=== PATIENT | female | born 1970 | race Two or more races ===

== ENCOUNTER 2017-10-02 13:32 | Emergency (ER) | payer MEDICARE, MEDICAID ==
[~2017-10-02] VITALS: Ht 165.1 cm; Wt 74.8 kg
--- NOTE | 2017-10-02 13:35 | NUR ---
PT BIBRA TO ER BED 10. PER REPORT, PT'S NEIGHBOR CONCERNED ABOUT PT'S INCREASING PARANOIA. PT IS AAO, DENIES HI/SI. BILAT FOOT BLISTERS NOTED. PER FRIENDS PT'S BEEN OUT ALL NIGHT WALKING WITHOUT SHOES. GOWNED AND PLACED ON MONITOR. VSS. AWAITING MD STRINGER.
[2017-10-02 13:55] LABS: BASOPHILS # (AUTO) 0.2 /CMM (0.0-0.2); BASOPHILS % (AUTO) 2.1 % (0.0-2.0); EOSINOPHILS % (AUTO) 0.8 % (0.0-6.0); HEMATOCRIT 42 % (33-45); HEMOGLOBIN 13.8 g/dL (11.5-14.8); LYMPHOCYTES # (AUTO) 2.1 /CMM (0.8-4.8); LYMPHOCYTES % (AUTO) 23.6 % (20.0-44.0); MEAN CORPUSCULAR HEMOGLOBIN 30 PG (26.0-33.0); MEAN CORPUSCULAR HGB CONC 33 g/dl (31.0-36.0); MEAN CORPUSCULAR VOLUME 90 fL (82-100); MONOCYTES # (AUTO) 0.5 /CMM (0.1-1.30); MONOCYTES % (AUTO) 5.2 % (2.0-12.0); NEUTROPHILS % (AUTO) 68.3 % (43.0-81.0); PLATELET COUNT (AUTO) 220 /CMM (150-450); RED BLOOD CELL COUNT(AUTO) 4.63 MIL/uL (4.0-5.2); WHITE BLOOD COUNT (AUTO) 8.9 K/uL (4.3-11.0)
[2017-10-02 14:05] LABS: CALCIUM, SERUM 9.2 mg/dL (8.5-10.1); CARBON DIOXIDE 27 mmol/L (21-32); CHLORIDE 100 mmol/L (98-107); CREATININE 1.1 mg/dL (0.6-1.3); GLUCOSE 272 mg/dL (74-106); POTASSIUM 3.6 mmol/L (3.5-5.1); SODIUM SERUM 137 mmol/L (136-145); UREA NITROGEN, BLOOD 11 mg/dL (7-18)
--- NOTE | 2017-10-02 14:05 | NUR ---
ALMA INVENTORY CONTROL ASSISTANT AT BEDSIDE FOR EVAL.
[2017-10-02 14:15] LABS: ACETAMINOPHEN 0 ug/ml (10-30); ALANINE AMINOTRANSFERASE 97 U/L (12-78); ALBUMIN 3.8 g/dL (3.4-5.0); ALCOHOL, BLOOD < 3 mg/dL (0-0); ALKALINE PHOSPHATASE 87 U/L (46-116); ASPARTATE AMINOTRANSFERASE 154 U/L (15-37); BILIRUBIN,DIRECT 0.2 mg/dL (0.0-0.2); TOTAL PROTEIN, SERUM 7.4 g/dL (6.4-8.2)
[2017-10-02 16:34] LABS: APPEARANCE,URINE Slightly Cloudy (CLEAR); BILIRUBIN,URINE SMALL (NEGATIVE); BLOOD, URINE Negative Ery/uL (NEGATIVE); COLOR,URINE Dark (YELLOW); KETONES,URINE Trace (NEGATIVE); LEUKOCYTE ESTERASE ,URINE Negative (NEGATIVE); NITRITE, URINE Negative (NEGATIVE); PROTEIN,URINE 30 mg/dl (NEGATIVE); UGLUCOSE 500 MG/DL mg/dL (NEGATIVE)
--- NOTE | 2017-10-02 16:52 | NUR ---
RYLIE RN AT BEDSIDE FOR PSYCH EVAL.
[2017-10-02 17:26] LABS: BACTERIA,URINE Few /HPF (None Seen); RBC,URINE 0-2 /HPF (0-2); SQUAMOUS EPITHELIAL CELL,UR Few /HPF (None Seen); URINE AMORPHOUS URATE Moderate /HPF (None Seen); WBC,URINE 0-2 /HPF (0-3)
[2017-10-02 18:15] VITALS: BP 136/84
--- NOTE | 2017-10-02 18:40 | NUR ---
BLOOD SUGAR RECHECK 171. ALMA COBB AWARE.
--- NOTE | 2017-10-02 19:07 | NUR ---
REPORT RECEIVED FROM EARL VENTURA FOR [facility].
--- NOTE | 2017-10-02 19:12 | NUR ---
REPORT GIVEN TO MARYLOU AT [facility].
--- NOTE | 2017-10-02 19:31 | NUR ---
CALLED TRANSPORT ETA IS 2100 PER [facility] TRIP NUMBER [id number]
--- NOTE | 2017-10-02 20:55 | NUR ---
REPORT GIVEN TO MARCIA LYNN FOR TRANSPORT.
== END 2017-10-02 20:58 ==
LOC: ER 13:34
DX: F31.9 Bipolar disorder, unspecified (principal); J45.909 Unspecified asthma, uncomplicated; F20.0 Paranoid schizophrenia; Z60.2 Problems related to living alone
CPT/HCPCS: 36415; 71045; 80048; 80076; 80305; 80329; 81001; 82962; 84703; 85025; 99285; A4606; A6402; G0480 ×2; 81000-TC; Z7610